=== PATIENT | male | born 1950 | race Hispanic/Latino ===

== ENCOUNTER 2018-10-08 09:02 | Emergency (ER) | payer MEDICARE ==
[2018-10-08 09:16] VITALS: BP 123/80; PULSE 75; RESP 18; TEMP 98.1; O2SAT 98
[2018-10-08] MEDS ORDERED: Tmp-Smz 800 mg-160 mg DS Tab PO STA (09:36)
[2018-10-08] MEDS ORDERED: Bacitracin 500 Units/gm Oint Foilpak UD TOP ONE (09:36)
--- NOTE | 2018-10-08 09:39 | C.PDOC ---
History Of Present Illness 67 year old male presents to the ED for evaluation of a left hand wound that has been present for around 2-3 weeks. Patient has history of basal cell carcinoma to the left arm. He was evaluated and treated at [facility] and had a surgical graft placed. Patient states he has not been able to follow up due to transportation issues. Patient thinks his symptoms may be returning, and presents for further evaluation. Patient denies fever, chills, or recent trauma/injuries to the site. Time Seen by Provider: 10/08/18 09:22 Chief Complaint (Nursing): Abnormal Skin Integrity History Per: Patient History/Exam Limitations: no limitations Onset/Duration Of Symptoms: Other (2-3 weeks ) Current Symptoms Are (Timing): Still Present Location Of Injury: Left: Hand Additional History Per: Patient Past Medical History Reviewed: Historical Data, Nursing Documentation, Vital Signs Vital Signs: Last Vital Signs Temp 98.1 F 10/08/18 09:10 Pulse 75 10/08/18 09:10 Resp 18 10/08/18 09:10 BP 123/80 10/08/18 09:10 Pulse Ox 98 10/08/18 09:10 - Medical History PMH: HTN, Hyperlipidemia Surgical History: No Surg Hx Family History: States: Unknown Family Hx - Social History Hx Alcohol Use: No Hx Substance Use: No - Immunization History Hx Tetanus Toxoid Vaccination: Yes Hx Influenza Vaccination: Yes Hx Pneumococcal Vaccination: Yes Review Of Systems Constitutional: Negative for: Fever, Chills Skin: Positive for: Other (left hand wound. no recent injuries ) Physical Exam - Physical Exam Appears: Non-toxic, No Acute Distress, Other (comfortable ) Skin: Other (left forearm - large area of skin graft, intact, left hand lateral/dorsal aspect approx 2cm open wound with mild purulent discharge, (+) mild surrounding erythema) Head: Atraumatic, Normacephalic Eye(s): bilateral: Normal Inspection Oral Mucosa: Moist Neck: Supple Chest: Symmetrical, No Deformity, No Tenderness Cardiovascular: Rhythm Regular, No Murmur Respiratory: Normal Breath Sounds, No Rales, No Rhonchi, No Wheezing Extremity: Normal ROM, Capillary Refill (less than 2 seconds ) Neurological/Psych: Oriented x3, Normal Speech, Normal Cognition ED Course And Treatment O2 Sat by Pulse Oximetry: 98 Progress Note: Patient given Keflex PO and Bactrim PO. Bacitracin TOP applied. Clean and sterile dressing applied to left hand wound. On reassessment, patient is resting comfortably, showing no signs of distress and is stable for discharge. Patient is given a list of local dermatologists and is instructed to follow up within one week for further evaluation. Advised to return to the ED if symptoms persist or worsen. Disposition Counseled Patient/Family Regarding: Diagnosis, Need For Followup, Rx Given - Disposition Referrals: Cecilio Rojas MD [Medical Doctor] - Disposition: HOME/ ROUTINE Disposition Time: 09:50 Condition: STABLE Additional Instructions: FOLLOW UP WITH DERMATOLOGY WITHIN 1 WEEK USE ANTIBIOTICS UNTIL FINISHED RETURN TO ER IF SYMPTOMS WORSEN Prescriptions: Cephalexin [Keflex] 500 mg PO BID #14 capsule Sulfamethoxazole/Trimethoprim [Bactrim DS 800 mg-160 mg] 1 tab PO BID #14 tab Instructions: Wound Infection Forms: [employer] (Kyrgyz) Print Language: WELSH - Clinical Impression Clinical Impression: Open wound of left hand, Cellulitis - Scribe Statement The provider has reviewed the documentation as recorded by the Scribe (Aure Candelario) Provider Attestation: All medical record entries made by the Scribe were at my direction and personally dictated by me. I have reviewed the chart and agree that the record accurately reflects my personal performance of the history, physical exam, medical decision making, and the department course for this patient. I have also personally directed, reviewed, and agree with the discharge instructions and disposition.
[2018-10-08] MEDS ORDERED: Bacitracin 500 Units/gm Oint Foilpak UD ONE (09:57)
[2018-10-08] MEDS ORDERED: Tmp-Smz 800 mg-160 mg DS Tab ONE (09:57)
== END 2018-10-08 09:59 | disposition home or self-care (01) ==
LOC: C.ER 09:02
DX: S61.402D Unspecified open wound of left hand, subsequent encounter (principal); I10 Essential (primary) hypertension; E78.5 Hyperlipidemia, unspecified